=== PATIENT | female | born 2000 | race Caucasian/White ===

== ENCOUNTER 2023-01-08 22:17 | Emergency (ER) | payer OTHER ==
[~2023-01-08] VITALS: Ht 165.1 cm; Wt 53.7 kg
[2023-01-08] MEDS ORDERED: OMEP-173 PO (22:23)
[2023-01-08] MEDS ORDERED: APRITAB PO (22:23)
[2023-01-09 02:33] VITALS: BP 132/81
== END 2023-01-09 02:35 | disposition home or self-care (01) ==
LOC: M ED 22:17
DX: H53.122 Transient visual loss, left eye (principal); K21.9 Gastro-esophageal reflux disease without esophagitis; Z79.3 Long term (current) use of hormonal contraceptives